=== PATIENT | male | born 1990 | race Caucasian/White ===

== ENCOUNTER 2016-07-05 17:34 | Emergency (ER) | payer OTHER ==
[~2016-07-05 17:34] MED LIST: AUGMENTIN PO; IBUPROFEN800 MG PO; KETOPROFEN PO; NO MEDICATIONS; VICODIN 5/1 TAB 5/50 PO
[2016-07-05 20:06] LABS: BASOPHIL# 0.1 X10e3 (0-0.3); BASOPHIL% 0.6 % (0-2.5); DIFF IND NO; EOSINOPHIL# 0.2 X10e3 (0-0.7); EOSINOPHIL% 1.9 % (0.0-7.0); HEMATOCRIT 42.1 % (38.0-50.0); HEMOGLOBIN 14.3 gm/dL (13.0-16.0); LYMPHOCYTE# 2.2 X10e3 (1.0-3.5); LYMPHOCYTE% 23.2 % (17.0-45.0); MEAN CORPUSCULAR HEMOGLOBIN 30.5 PG (28-34); MEAN CORPUSCULAR HGB CONC 33.9 g/dL (30-36); MEAN PLATELET VOLUME 8.4 FL (6.5-11.5); MONOCYTE# 1.1 X10e3 (0-1.0); MONOCYTE% 12.2 % (3.0-12.0); NEUTROPHIL# 5.8 X10e3 (1.5-7.1); NEUTROPHIL% 62.1 % (40-75); PLATELET COUNT 241 X10e3 (140-420); RED BLOOD COUNT 4.67 X10e (3.90-5.60); RED CELL DISTRIBUTION WIDTH 13.8 % (11.0-15.5); WHITE BLOOD COUNT 9.4 X10e3 (4.0-10.5)
[2016-07-05 20:26] LABS: CREATININE SERUM 0.9 mg/dL (0.6-1.4); GLOM FILT RATE Estimated 118.3 mL/min (>60); POTASSIUM 3.4 mmol/L (3.5-5.1)
== END 2016-07-05 21:38 ==
LOC: CED 17:34
PROVIDERS: Nurse Practitioner
DX: L03.114 Cellulitis of left upper limb (principal); F17.210 Nicotine dependence, cigarettes, uncomplicated; F19.10 Other psychoactive substance abuse, uncomplicated; Z23 Encounter for immunization
CPT/HCPCS: 36415; 80048; 85025; 90471; 90715; 96365; 99284

== ENCOUNTER 2016-09-13 11:50 | Inpatient (IN) | payer OTHER ==
--- NOTE | ~2016-09-13 | HP ---
Unit #: [id number] #: [id number] Patient: MICKY HEADLEY [id number] [facility] [address] [facility]. [place], [place] [address] [id number] E MR#: [id number] NAME: MICKY HEADLEY ROOM: Age: 25 Sex: M Admission Date: 09/13/2016 : 1990 Attending Physician: Esequiel Crisostomo M.D. Primary Care Physician: No Primary Care Physician HISTORY AND PHYSICAL CHIEF COMPLAINT Coughing up blood. HISTORY OF PRESENT ILLNESS The patient is a 25-year-old male with past medical history of IV drug use, who presented to the emergency department for evaluation of the above. The patient states that he was in his usual state of health until the morning of admission when he started coughing up blood. He denies fever. He states that he has had shortness of breath in association with the cough. He also reports chest wall pain in association with cough. He denies any similar episode. He has had vomiting as well. He does not think he has had any blood in the vomit. He denies any abdominal pain. In the emergency department, initial pulse and blood pressure were 95 and 119/67 respectively. Oxygen saturation is 92% on room air. Chest x-ray shows dense right upper lobe infiltrate. He was given vancomycin, Rocephin, and azithromycin in the emergency department. He is being admitted to [facility] for evaluation and further treatment. PAST MEDICAL HISTORY Admission to [facility] for left hand abscess. He underwent incision and drainage. SOCIAL HISTORY The patient lives with friends. He works in [employer]. He is an IV drug user. He states that he last used IV methamphetamine on September 12, 2016. FAMILY HISTORY Notable for his mother having schizophrenia. ALLERGIES Not listed. HOME MEDICATIONS None. REVIEW OF SYSTEMS A complete review of systems is negative except as indicated in the HPI. DIAGNOSTIC STUDIES LABORATORY: Complete blood count notable for white blood cell count of 18.2. D-dimer is 1105. Comprehensive metabolic panel notable for glucose Unit #: [id number] #: [id number] Patient: MICKY HEADLEY of 114. AST and ALT are 46 and 49 respectively. Lactic acid is 1. IMAGING: Chest x-ray shows dense right upper lobe infiltrate. PHYSICAL EXAMINATION VITAL SIGNS: Temperature is 97.8, pulse 95, respirations 16, blood pressure 119/67, oxygen saturation 92% on room air. GENERAL: The patient is a male who is awake and alert, in no acute distress. HEENT: The head is atraumatic. Mucous membranes are moist. NECK: Supple. Trachea is midline. CARDIOVASCULAR: Regular rate and rhythm. LUNGS: Clear to auscultation bilaterally with no increased work of breathing. ABDOMEN: Soft, nontender with bowel sounds present in all four quadrants. EXTREMITIES: Nontender with no pedal edema. NEUROLOGIC: The patient is awake and alert. He follows commands. PSYCHIATRIC: Mood and affect are normal. The patient is cooperative. SKIN: Skin of examined areas is warm and dry. ASSESSMENT The patient is a 25-year-old male with: 1. Community-acquired pneumonia: The patient received Rocephin and azithromycin in the emergency department. 2. Hemoptysis with elevated D-dimer. 3. Sepsis with an initial lactic acid of 1. 4. Transaminitis. 5. IV drug use with the last use being yesterday. 6. Tobacco abuse. PLAN 1. Admit to intermediate level. 2. Regular diet. 3. Blood cultures x2. 4. Sputum culture and sensitivity. 5. Vancomycin IV, Rocephin IV, azithromycin IV for community-acquired pneumonia pending further workup. 6. Procalcitonin level. 7. CT of the chest PE protocol for further evaluation of hemoptysis and elevated D-dimer. 8. Check 2D echo due to history of IV drug use. 9. Consult Dr. Boateng regarding hemoptysis. 10. Sepsis protocol with repeat lactic acid. 11. Urinalysis with culture and sensitivity. 12. Urine tox screen. 13. Check HIV and hepatitis panel. 14. welfare project manager and social work consult regarding IV drug use. 15. Check EKG. 16. Repeat labs in the morning. 17. Additional workup and consultants based on above. Dictated by Chuyita Tam M.D. JUNE/nette Unit #: [id number] #: [id number] Patient: MICKY HEADLEY TD: 09/13/2016 14:42 JOB #: [id number] HISTORY AND PHYSICAL Page 1 of 1 X Chuyita Tam MD X HISTORY AND PHYSICAL
--- NOTE | ~2016-09-13 | DS ---
Unit #: [id number] #: [id number] Patient: MICKY HEADLEY [id number] [address] [address] [id number] I MR#: [id number] NAME: MICKY HEADLEY ROOM: 319 Age: 25 Sex: M Admission Date: 09/13/2016 : 1990 Discharge Date: Attending Physician: Monae Lenz M.D. Primary Care Physician: No Primary Care Physician DISCHARGE SUMMARY DISCHARGE DIAGNOSES 1. Sepsis. 2. Bilateral pneumonia. 3. Diffuse alveolar hemorrhage. 4. History of left hand abscess status post incision and drainage. 5. Hemoptysis. 6. Transaminitis. 7. Intravenous drug abuse. 8. Smoking. 9. Hyperglycemia secondary to steroids. 10. Leukocytosis secondary to steroids. CONSULTATIONS Dr. Boateng. PROCEDURES Bronchoscopy. DIAGNOSTIC TESTING LAB DATA: Sodium 141, potassium 4, creatinine 0.9, blood sugar 143. WBC 17.7, hemoglobin 14.4, platelets 238. Bronchoscopic cultures negative. Sputum cultures negative. Virus culture is pending. Urine culture negative. ABG - pH 7.43, carbon dioxide 40, oxygen 70. Blood culture negative. HIV 1 and 2 nonreactive. Lactic acid 1.3. IMAGING: Chest x-ray, bilateral view, shows interval improvement in bilateral pulmonary infiltrates. CT angio chest shows extensive bilateral infiltrates, likely multifocal pneumonia. ALLERGIES None. DISCHARGE MEDICATIONS 1. Levaquin 750 p.o. daily for 7 days. 2. Prednisone tapering dose. HOSPITALIZATION COURSE A 25 year old admitted because of shortness of breath. Sepsis from bilateral pneumonia. Patient received broad-spectrum antibiotics. Sputum cultures and bronchoscopic cultures are negative. Continue with Levaquin for 7 more days. Unit #: [id number] #: [id number] Patient: MICKY HEADLEY Bilateral diffuse alveolar hemorrhage. Patient was seen by Dr. Boateng. Started on IV Solu-Medrol. Patient is being discharged on p.o. prednisone. Hyperglycemia secondary to steroids. DISCHARGE PLAN 1. Discharge home. 2. Follow with family physician in 1 week's time. 3. Follow with Dr. Boateng in 2 weeks' time. DISCHARGE INSTRUCTIONS I discussed in detail about abstinence of IV drug abuse. He understands. Also, I discussed at length about the necessity of following with his family doctor and the automotive electrician because of diffuse alveolar hemorrhage and pneumonia. He understands that he needs to follow up. NOTE: Discharge time taken is 31 minutes. Dictated by... Lin Foy TD: 09/16/2016 14:47 JOB #: [id number] DISCHARGE SUMMARY Page 1 of 1 X Monae Lenz MD X DISCHARGE SUMMARY
--- NOTE | ~2016-09-13 | CR63 ---
[facility] A Service of [facility] & [facility] RADIOLOGY TEXT RESULTS PATIENT: MICKY HEADLEY LOCATION: [facility] [id number] : [birth year] UNIT #: [id number] AGE: [address]: Chuyita Tam MD SEX: M ORDER DR: [id number] [facility] [address] [facility]. [place], [place] [address] [id number] E MR#: [id number] Acc #: [id number] NAME: MICKY HEADLEY : 1990 SEX: M STUDY DATE/TIME: 09/13/2016 12:38 UNIT: [facility] ROOM: STUDY DESCRIPTION: CR Chest 2 View Attending Physician: Esequiel Crisostomo M.D. Ordering Physician: Esequiel Crisostomo M.D. Primary Care Physician: Primary Care Physician No MEDICAL IMAGING REPORT This report is preliminary unless electronic signature is present EXAM Chest, 09/13/2016 12:38 hours HISTORY 25-year-old male coughing up blood this morning. History of nausea. Smoker. COMPARISON Chest, 08/02/2008 FINDINGS PA and lateral chest views show normal cardiac size and configuration. Hilar structures are preserved. Left lung is expanded and clear. There is infiltrate present in the right upper lobe consistent with atypical pneumonia. I see no associated effusion. IMPRESSION Right upper lobe lobar pneumonia. Correlate clinically with short-interval followup recommended. Dictated by... Zaire Major M.D. THIS IS AN ELECTRONICALLY VERIFIED REPORT Zaire Major M.D. at 09/13/2016 3:00 PM Ailyn TD: 09/13/2016 14:19 JOB #: [id number] MEDICAL IMAGING REPORT Page 1 of 1 COPY
--- NOTE | ~2016-09-13 | OR ---
Unit #: [id number] #: [id number] Patient: MICKY HEADLEY [id number] [address] [address] [id number] I MR#: [id number] NAME: MCIKY HEADLEY ROOM: 319 Date of Procedure: 09/14/2016 Admission Date: 09/13/2016 Surgeon: Jairon Boateng M.D. : 1990 Attending Physician: Chuyita Tam M.D. Primary Care Physician: Primary Care Physician No PROCEDURE OPERATIVE NOTE PROCEDURE Diagnostic bronchoscopy, bronchioalveolar lavage. INDICATION Pneumonia. PREPROCEDURE DIAGNOSIS Pneumonia. POSTPROCEDURE DIAGNOSIS Diffuse alveolar hemorrhage. DETAILS OF PROCEDURE After taking consent from the patient, explaining the risks and benefits, the patient was placed in the appropriate position. Bronchoscope introduced through the oral cavity. Vocal cords appeared to be symmetrically moving toward the midline. Trachea was normal. Lolita was sharp. We examined right upper, right middle, right lower lobe, left upper lobe, lingula and left lower lobe. There were thick mucoid secretions in both lungs which were therapeutically suctioned. We did a bronchioalveolar lavage in the right upper lobe area and sequential lavage was consistent with likely diffuse alveolar hemorrhage. Patient will be started on high dose steroid. Will continue antibiotics. No endobronchial lesion was found. Dictated by... Lin Vargas/yenni TD: 09/14/2016 16:10 JOB #: [id number] Unit #: [id number] #: [id number] Patient: MICKY HEADLEY PROCEDURE OPERATIVE NOTE Page 1 of 1 X Jairon Boateng MD X PROCEDURE OPERATIVE NOTE
--- NOTE | ~2016-09-13 | CO ---
Unit #: [id number] #: [id number] Patient: MICKY HEADLEY [id number] [address] [address] [id number] I MR#: [id number] NAME: MICKY HEADLEY ROOM: 319 Age: 25 Sex: M Admission Date: 09/13/2016 : 1990 Attending Physician: Chuyita Tam M.D. Primary Care Physician: No Primary Care Physician Consultation Date: 09/13/2016 CONSULTATION REPORT CHIEF COMPLAINT Hemoptysis. HISTORY OF PRESENT ILLNESS The patient is a 25-year-old male with a past medical history of IV drug use. He presented with the complaint of hemoptysis, one to two days of shortness of breath, cough and found to be slightly hypoxic. I am seeing the patient at the bedside. He is complaining of chest pressure. He denies any nausea, vomiting or diarrhea. He recently used two days ago IV methamphetamine. PAST MEDICAL HISTORY Hand abscess. PAST SURGICAL HISTORY Incision and drainage. SOCIAL HISTORY IV drug use. FAMILY HISTORY Schizophrenia. PHYSICAL EXAMINATION VITALS: Temperature 98.7, pulse 67, respiratory rate 12, blood pressure 130/70. HEENT: Pupils equally round and reactive to light and accommodation. NECK: Supple. No jugular venous distension. CHEST: Bilateral air entry. Bilateral mild rhonchi. ABDOMEN: Nontender and soft. Bowel sounds positive. EXTREMITIES: No edema. SKIN: No rashes. No ulcers. LYMPH: No lymphadenopathy. NEUROLOGIC: Awake, alert and oriented. No neurologic deficits. DIAGNOSTIC STUDIES IMAGING: Reviewed. LABORATORY: Reviewed. ASSESSMENT 1. Pneumonia. 2. Hemoptysis. 3. Sepsis. Unit #: [id number] #: [id number] Patient: MICKY HEADLEY 4. IV drug user. PLAN Continue the patient on IV antibiotics, including vancomycin, Zosyn and Rocephin. CT of the chest has been reviewed. The patient will need bronchoscopy. Will schedule for that. HIV will be checked. The patient will be closely monitored. Please see orders for detailed plan. Thank you very much for this consultation. Dictated by... Lin Vargas TD: 09/14/2016 08:00 JOB #: [id number] CONSULTATION REPORT Page 1 of 1 X Jairon Boateng MD CONSULTATION REPORT
--- NOTE | ~2016-09-13 | CR63 ---
[facility] A Service of [facility] & [facility] RADIOLOGY TEXT RESULTS PATIENT: MICKY HEADLEY LOCATION: [facility] 319- : [birth year] UNIT #: [id number] AGE: [address]: Monae Lenz MD SEX: M ORDER DR: [id number] [address] [place], [place] [address] [id number] I MR#: [id number] Acc #: [id number] NAME: MICKY HEADLEY : 1990 SEX: M STUDY DATE/TIME: 09/15/2016 7:22 UNIT: [address] ROOM: [facility] STUDY DESCRIPTION: CR Chest 2 View Attending Physician: Monae Lenz M.D. Ordering Physician: Jairon Boateng M.D. Primary Care Physician: Primary Care Physician No MEDICAL IMAGING REPORT This report is preliminary unless electronic signature is present EXAM PA and lateral chest radiograph INDICATION Chest pain and hemoptysis since September 13, 2016. FINDINGS Comparison is made to a prior examination from September 13, 2016. Heart size is within normal limits. Previously identified infiltrates appear improved when compared to the prior study from September 13, 2016. No definite pleural effusion is seen. No pneumothorax is identified. No new infiltrates are seen. IMPRESSION Interval improvement in previously identified pulmonary infiltrates. Dictated by... Jazz Gil M.D. THIS IS AN ELECTRONICALLY VERIFIED REPORT Jazz Gil M.D. at 09/16/2016 4:50 PM AFF/joey TD: 09/15/2016 13:55 JOB #: [id number] MEDICAL IMAGING REPORT Page 1 of 1 COPY
--- NOTE | ~2016-09-13 | EKG ---
PATIENT: MICKY HEADLEY UNIT #: [id number] Ventricular Rate: 57 BPM Atrial Rate: 57 BPM P-R Interval: 148 ms QRS Duration: 90 ms Q-T Interval: 412 ms QTC Calculation(Bezet): 401 ms P [place]: 27 degrees Calculated R [place]: 76 degrees Calculated T [place]: 40 degrees Diagnosis Line: Sinus bradycardia Diagnosis Line: Otherwise normal ECG Diagnosis Line: When compared with ECG of 13-SEP-2016 14:56, Diagnosis Line: (unconfirmed) Diagnosis Line: Vent. rate has decreased BY 29 BPM Diagnosis Line: Confirmed by KETAN ANDERSEN MD ([id number]) on 09/15/2016 Diagnosis Line: 4:38:12 PM INTERPRETING MD: GANESH FENTON
--- NOTE | ~2016-09-13 | CT16 ---
[facility] A Service of [facility] RADIOLOGY TEXT RESULTS PATIENT: MICKY HEADLEY LOCATION: [facility] 319-01 : [birth year] UNIT #: [id number] AGE: [address]: Chuyita Tam MD SEX: M ORDER DR: [id number] [facility] [address] [facility]. [place], [place] [address] [id number] I MR#: [id number] Acc #: [id number] NAME: MICKY HEADLEY : 1990 SEX: M STUDY DATE/TIME: 09/13/2016 16:08 UNIT: [address] ROOM: 319 STUDY DESCRIPTION: CT Angio Chest for PE Attending Physician: Chuyita Tam M.D. Ordering Physician: Chuyita Tam M.D. Primary Care Physician: No Primary Care Physician MEDICAL IMAGING REPORT This report is preliminary unless electronic signature is present EXAM CT angiogram chest with IV contrast. HISTORY Cough, hemoptysis, mid chest pain and shortness of air today. TECHNIQUE This CT exam was performed with one or more of the following radiation dose reduction techniques: automatic exposure control, adjustment of mA and/or kV according to patient size, and iterative reconstruction. FINDINGS IV contrast enhanced CT angiogram of the chest was performed with 3D reconstructions. There are moderately extensive pulmonary infiltrates, primarily in the right upper lobe, with additional mild multifocal infiltrates in the left upper lobe, right lower lobe and superior segment left lower lobe. Although nonspecific, these are concerning for multifocal pneumonia. No pleural effusions. No pulmonary embolus. Normal caliber thoracic aorta. No adenopathy. IMPRESSION 1. Extensive bilateral pulmonary infiltrates, greater in the right upper lobe and to a lesser degree in the right lower lobe with additional mild infiltrates in the left upper lobe and superior segment left lower lobe. These are similar to findings on chest x-ray earlier today. Although nonspecific, this could be due to multifocal pneumonia. Short-term followup chest x-ray is recommended. 2. No pulmonary embolus. 3. No pleural effusions. 4. No adenopathy. [facility] A Service of [facility] & [facility] RADIOLOGY TEXT RESULTS PATIENT: MICKY HEADLEY LOCATION: A 319-01 : [birth year] UNIT #: [id number] AGE: [address]: Chuyita Tam MD SEX: M ORDER DR: Dictated by... Migel Swift M.D. THIS IS AN ELECTRONICALLY VERIFIED REPORT Migel Swift M.D. at 09/13/2016 11:11 PM MATTHEW/sunday TD: 09/13/2016 19:42 JOB #: [id number] MEDICAL IMAGING REPORT Page 1 of 1 COPY
--- NOTE | ~2016-09-13 | EKG ---
PATIENT: MICKY HEADLEY UNIT #: [id number] Ventricular Rate: 86 BPM Atrial Rate: 86 BPM P-R Interval: 138 ms QRS Duration: 80 ms Q-T Interval: 354 ms QTC Calculation(Bezet): 423 ms P [place]: 46 degrees Calculated R [place]: 72 degrees Calculated T [place]: 38 degrees Diagnosis Line: Normal sinus rhythm Diagnosis Line: Normal ECG Diagnosis Line: No previous ECGs available Diagnosis Line: Confirmed by KETAN ANDERSEN MD ([id number]) on 09/15/2016 Diagnosis Line: 4:27:32 PM INTERPRETING MD: GANESH FENTON
[2016-09-13 12:24] LABS: BASOPHIL% 0.1 % (0-2.5); DIFF IND YES; HEMATOCRIT 47.8 % (38.0-50.0); HEMOGLOBIN 15.9 gm/dL (13.0-16.0); LYMPHOCYTE# 0.7 X10e3 (1.0-3.5); LYMPHOCYTE% 3.8 % (17.0-45.0); MEAN CELL VOLUME 91.4 FL (83-96); MEAN CORPUSCULAR HEMOGLOBIN 30.4 PG (28-34); MEAN CORPUSCULAR HGB CONC 33.3 g/dL (30-36); MEAN PLATELET VOLUME 9.4 FL (6.5-11.5); MONOCYTE# 1.1 X10e3 (0-1.0); NEUTROPHIL# 16.4 X10e3 (1.5-7.1); NEUTROPHIL% 90.1 % (40-75); PLATELET COUNT 203 X10e3 (140-420); RED BLOOD COUNT 5.22 X10e (3.90-5.60); RED CELL DISTRIBUTION WIDTH 13.5 % (11.0-15.5); WHITE BLOOD COUNT 18.2 X10e3 (4.0-10.5)
[2016-09-13 12:50] LABS: ANISOCYTOSIS SL; PLATELET ESTIMATE NORMAL (NORMAL); RBC NORMAL YES
[2016-09-13 13:05] LABS: ALBUMIN SERUM 4.4 g/dL (3.5-5.0); BILIRUBIN, DIRECT 0.2 mg/dL (0.0-0.2); BILIRUBIN,INDIRECT 1.3 mg/dL (0.0-0.9); BILIRUBIN,TOTAL 1.5 mg/dL (0.2-2.0); GLOM FILT RATE Estimated 104.2 mL/min (>60); POTASSIUM 4.1 mmol/L (3.5-5.1); PROTEIN TOTAL SERUM 7.4 g/dL (6.0-8.3)
[2016-09-13 15:39] LABS: ALBUMIN SERUM 4.6 g/dL (3.5-5.0); BILIRUBIN, DIRECT 0.3 mg/dL (0.0-0.2); BILIRUBIN,INDIRECT 1.2 mg/dL (0.0-0.9); BILIRUBIN,TOTAL 1.5 mg/dL (0.2-2.0); INR 1.1; PROTEIN TOTAL SERUM 7.6 g/dL (6.0-8.3); PROTHROMBIN TIME (PATIENT) 11.3 SECONDS (9.6-11.5)
[2016-09-13] MEDS ORDERED: NO MEDICATIONS (16:12)
[2016-09-13 16:50] LABS: URINE SOURCE CLEAN CATCH
[2016-09-13 17:13] LABS: URINE APPEARANCE CLEAR; URINE BILIRUBIN NEG (NEG); URINE BLOOD NEG (NEG); URINE COLOR YELLOW; URINE GLUCOSE NEG (NEG); URINE KETONE 2+ (NEG); URINE LEUKOCYTE ESTERASE NEG (NEG); URINE NITRATE NEG (NEG); URINE PROTEIN 1+ (NEG); URINE SPECIFIC GRAVITY 1.042 (1.003-1.035)
[2016-09-13 17:16] LABS: URBCS1 AUWI 0-2 /[HPF] (0-2); URINE BACTERIA AUWI NEG (NEGATIVE); URINE SQUAMOUS EPITHELIAL CELL NONE SEEN /[HPF]; UWBCS1 AUWI 0-2 (0-5)
[2016-09-13 17:23] LABS: AMPHETAMINE POS (NEG); BARBITURATES NEG (NEG); BENZODIAZEPINES NEG (NEG); COCAINE NEG (NEG); MARIJUANA POS (NEG); OPIATES POS (NEG); TRICYCLIC ANTIDEPRESSANTS NEG (NEG); U METHADONE NEG (NEG)
[2016-09-14 06:21] LABS: HEMATOCRIT 41.5 % (38.0-50.0); HEMOGLOBIN 14.1 gm/dL (13.0-16.0); MEAN CELL VOLUME 91.5 FL (83-96); MEAN CORPUSCULAR HEMOGLOBIN 31.2 PG (28-34); MEAN CORPUSCULAR HGB CONC 34.1 g/dL (30-36); MEAN PLATELET VOLUME 9.5 FL (6.5-11.5); RED BLOOD COUNT 4.53 X10e (3.90-5.60); RED CELL DISTRIBUTION WIDTH 13.9 % (11.0-15.5)
[2016-09-14 06:28] LABS: WHITE BLOOD COUNT 7.3 X10e3 (4.0-10.5)
[2016-09-14 06:57] LABS: ALBUMIN SERUM 3.7 g/dL (3.5-5.0); BILIRUBIN,TOTAL 0.9 mg/dL (0.2-2.0); BUN/CREATININE RATIO 16.66; CALCIUM SERUM 8.7 mg/dL (8.4-10.2); CREATININE SERUM 0.6 mg/dL (0.6-1.4); GLOM FILT RATE Estimated 139.8 mL/min (>60); POTASSIUM 3.5 mmol/L (3.5-5.1); PROTEIN TOTAL SERUM 6.3 g/dL (6.0-8.3)
[2016-09-14 13:04] LABS: BODY FLUID APPEARANCE BLOODY; BODY FLUID SOURCE BRONCHIAL LAVAGE
[2016-09-14 14:54] LABS: INR 1.1; PROTHROMBIN TIME (PATIENT) 11.4 SECONDS (9.6-11.5)
[2016-09-14 16:45] LABS: HEMOGLOBIN 14.6 gm/dL (13.0-16.0); MEAN CELL VOLUME 92.7 FL (83-96); MEAN CORPUSCULAR HEMOGLOBIN 30.7 PG (28-34); MEAN CORPUSCULAR HGB CONC 33.1 g/dL (30-36); MEAN PLATELET VOLUME 9.9 FL (6.5-11.5); RED BLOOD COUNT 4.75 X10e (3.90-5.60); RED CELL DISTRIBUTION WIDTH 13.6 % (11.0-15.5)
[2016-09-14 16:52] LABS: WHITE BLOOD COUNT 11.8 X10e3 (4.0-10.5)
[2016-09-15 03:42] LABS: ARTERIAL BLD GAS O2 SATURATION 95.2 % (90.0-100.0); ARTERIAL BLOOD GAS HCO3 27.2 mmol/L; ARTERIAL BLOOD GAS PCO2 40.8 mmHg (35.0-45.0); ARTERIAL BLOOD GAS PO2 70.1 mmHg (80.0-100); ARTERIAL BLOOD GAS pH 7.432 (7.350-7.450)
[2016-09-15 03:43] LABS: ARTERIAL BLOOD GAS ALLEN TEST NORMAL; ARTERIAL BLOOD GAS ART SITE LEFT RADIAL; ARTERIAL BLOOD GAS CARBOXY HB 1.1 %sat (0.0-9.0); ARTERIAL BLOOD GAS MET HB 0.5 %sat (0.0-2.0); ARTERIAL DRAW? YES
[2016-09-15 05:10] LABS: HEMATOCRIT 46.7 % (38.0-50.0); HEMOGLOBIN 15.7 gm/dL (13.0-16.0); MEAN CELL VOLUME 92.3 FL (83-96); MEAN CORPUSCULAR HEMOGLOBIN 31.1 PG (28-34); MEAN CORPUSCULAR HGB CONC 33.7 g/dL (30-36); MEAN PLATELET VOLUME 10.2 FL (6.5-11.5); RED BLOOD COUNT 5.05 X10e (3.90-5.60); RED CELL DISTRIBUTION WIDTH 13.6 % (11.0-15.5); WHITE BLOOD COUNT 8.1 X10e3 (4.0-10.5)
[2016-09-15 05:54] LABS: ALBUMIN SERUM 4.6 g/dL (3.5-5.0); BILIRUBIN,TOTAL 1.2 mg/dL (0.2-2.0); BUN/CREATININE RATIO 11.25; CALCIUM SERUM 9.5 mg/dL (8.4-10.2); CREATININE SERUM 0.8 mg/dL (0.6-1.4); GLOM FILT RATE Estimated 124.2 mL/min (>60); POTASSIUM 3.8 mmol/L (3.5-5.1); PROTEIN TOTAL SERUM 7.9 g/dL (6.0-8.3)
[2016-09-16 11:57] LABS: HEMATOCRIT 42.9 % (38.0-50.0); HEMOGLOBIN 14.4 gm/dL (13.0-16.0); MEAN CELL VOLUME 91.1 FL (83-96); MEAN CORPUSCULAR HEMOGLOBIN 30.5 PG (28-34); MEAN CORPUSCULAR HGB CONC 33.4 g/dL (30-36); MEAN PLATELET VOLUME 9.3 FL (6.5-11.5); RED BLOOD COUNT 4.71 X10e (3.90-5.60); RED CELL DISTRIBUTION WIDTH 13.8 % (11.0-15.5); WHITE BLOOD COUNT 17.7 X10e3 (4.0-10.5)
[2016-09-16 12:24] LABS: BUN/CREATININE RATIO 18.88; CALCIUM SERUM 9.5 mg/dL (8.4-10.2); CREATININE SERUM 0.9 mg/dL (0.6-1.4); GLOM FILT RATE Estimated 118.3 mL/min (>60)
[2016-09-16] MEDS ORDERED: LEVAQUIN750 MG PO (15:31)
[2016-09-16] MEDS ORDERED: PREDNISONE (15:31)
== END 2016-09-16 16:40 | disposition home or self-care (01) | DRG 853 ==
LOC: CED 11:50 → CEDOF 14:25 → C3A PCU 14:25 → CEDOF 14:31 → CED 14:31 → C3A PCU 18:13 → CEDOF 18:13 → C3A PCU 09-15 05:41
PROVIDERS: Emergency Medicine; Family Medicine; Internal Medicine
PROC: B24BZZZ Ultrasonography of Heart with Aorta (ICD-10-PCS; 2016-09-13)
PROC: B30TZZZ Plain Radiography of Left Pulmonary Artery (ICD-10-PCS; 2016-09-13)
PROC: B30SZZZ Plain Radiography of Right Pulmonary Artery (ICD-10-PCS; 2016-09-13)
PROC: 0B9M8ZZ Drainage of Bilateral Lungs, Via Natural or Artificial Opening Endoscopic (ICD-10-PCS; principal; 2016-09-14 10:30)
PROC: 0B9C8ZX Drainage of Right Upper Lung Lobe, Via Natural or Artificial Opening Endoscopic, Diagnostic (ICD-10-PCS; 2016-09-14 10:30)
DX: A41.9 Sepsis, unspecified organism (principal); J18.9 Pneumonia, unspecified organism; R04.89 Hemorrhage from other sites in respiratory passages; R74.0 Nonspecific elevation of levels of transaminase and lactic acid dehydrogenase [LDH]; F19.10 Other psychoactive substance abuse, uncomplicated; F17.210 Nicotine dependence, cigarettes, uncomplicated; R73.9 Hyperglycemia, unspecified; T38.0X5A Adverse effect of glucocorticoids and synthetic analogues, initial encounter; Y92.9 Unspecified place or not applicable; F12.90 Cannabis use, unspecified, uncomplicated; Z81.8 Family history of other mental and behavioral disorders
CPT/HCPCS: 36415; 36600; 71020; 71275; 80048; 80053; 80076; 80202; 80307; 81003; 82308; 82803; 83605; 83735; 85025; 85027; 85379; 85610; 87040; 87070; 87086; 87102; 87116; 87205; 87206; 87252; 87254; 87278; 87806; 88108; 88305; 88312; 89051; 93005; 93306; 94640; 94760; 99285; J0456; J0696; J2250; J2920; J2930; J3370; Q9967

== ENCOUNTER 2016-11-24 20:28 | Emergency (ER) | payer OTHER ==
[~2016-11-24 20:28] MED LIST changes: +LEVAQUIN750 MG PO; +PREDNISONE
== END 2016-11-24 23:15 | disposition home or self-care (01) ==
LOC: CED 20:28
DX: T40.1X1A Poisoning by heroin, accidental (unintentional), initial encounter (principal); F17.210 Nicotine dependence, cigarettes, uncomplicated
CPT/HCPCS: 99285